=== PATIENT | male | born 1995 | race Caucasian/White ===

== ENCOUNTER → 2017-10-04 | Outpatient (REF) | payer BC | LOC: M LAB REF 09:28 | DX: L02.31 Cutaneous abscess of buttock (principal) | CPT/HCPCS: 87205 ==

== ENCOUNTER → 2021-11-26 | Outpatient (CLI) | payer BC, OTHER ==
[~2021-11-26] MED LIST: ISOVUE-370 76% 100ML VIAL As Ordered ONE
== END ==
LOC: M RAD 17:19
PROVIDERS: ATTEND Otolaryngology
DX: R13.10 Dysphagia, unspecified (principal); R93.89 Abnormal findings on diagnostic imaging of other specified body structures
CPT/HCPCS: 70491; Q9967

== ENCOUNTER → 2022-02-18 | Outpatient (CLI) | payer OTHER | LOC: M RAD 09:25 | PROVIDERS: ATTEND Otolaryngology | DX: E04.2 Nontoxic multinodular goiter (principal) ==

== ENCOUNTER → 2022-07-22 | Outpatient (CLI) | payer OTHER ==
[2022-07-22 17:47] LABS: FREE T3 3.2 PG/ML (2.3-4.2); FREE T4 0.88 NG/DL (0.89-1.76)
[2022-07-22 17:48] LABS: THYROID STIMULATING HORMONE 1.396 uIU/ML (0.55-4.78)
== END ==
LOC: M RAD 15:49
PROVIDERS: ATTEND Otolaryngology
DX: E04.2 Nontoxic multinodular goiter (principal)

== ENCOUNTER → 2022-08-25 | Day surgery (SDC) | payer OTHER ==
[~2022-08-25] VITALS: Ht 177.8 cm; Wt 115.7 kg
[~2022-08-25] MED LIST changes: +BUPR150T12 PO; +BUPR300T92 PO; +FLUO40CA PO; -ISOVUE-370 76% 100ML VIAL As Ordered ONE; +LIDOCAINE 2% 100MG/5ML SDV (FOR ANES.) As Ordered ONE; +MAGN200T PO; +NS 1,000 ML IV ONE; +OMEP-173 PO; +VYVA30CA4 PO; +fentaNYL 100 MCG/2 ML INJECTION As Ordered ONE; +propofoL 200 MG/20 ML VIAL As Ordered ONE
[2022-08-25 16:15] VITALS: BP 127/76
== END | disposition home or self-care (01) ==
LOC: M OPP 12:21
PROVIDERS: ATTEND Internal Medicine Gastroenterology
DX: K22.89 Other specified disease of esophagus (principal); R13.12 Dysphagia, oropharyngeal phase; Z87.891 Personal history of nicotine dependence; Z79.899 Other long term (current) drug therapy
CPT/HCPCS: 43239; 43450; 88305; J3010

== ENCOUNTER → 2022-10-15 | Outpatient (CLI) | payer OTHER ==
[~2022-10-15] MED LIST changes: +FLUO20CA22 PO; +LIDOCAINE 1% MDV 20ML VIAL As Ordered ONE; -LIDOCAINE 2% 100MG/5ML SDV (FOR ANES.) As Ordered ONE; -NS 1,000 ML IV ONE; -fentaNYL 100 MCG/2 ML INJECTION As Ordered ONE; -propofoL 200 MG/20 ML VIAL As Ordered ONE
[2022-10-15 13:50] VITALS: BP 152/74; TEMP 98.6; O2SAT 99
== END ==
LOC: M IRPRO 13:42
PROVIDERS: ATTEND Otolaryngology
DX: E04.2 Nontoxic multinodular goiter (principal); R59.0 Localized enlarged lymph nodes